=== PATIENT | male | born 1950 | race Caucasian/White ===

== ENCOUNTER → 2017-09-23 | Outpatient (CLI) | payer MEDICARE ==
[~2017-09-23] MED LIST: ASCO-182 PO; ASPI81TA94 PO; ATOR20TA22 PO; CHOL10005 PO; ESOM40CA42 PO; FISH OIL1 CAP PO; GLUC-241 PO; GLUC100026 PO; LOR5/325 PO; METF-410 PO; MULT-820 PO; OMEG1CAP35 PO; RABE20TA33 PO; ROS10 PO
--- NOTE | 2017-09-23 20:05 | RT STRESS TEST REPORT ---
FACILITY: [facility] [place] PATIENT NAME: HERNAN BRYANT : [id number] MR: [id number] V: [id number] EXAM DATE: ORDERING PHYSICIAN: KELLEE LÓPEZ TECHNOLOGIST: [employer] Time: 2017-09-23 08:16:14 Total Exercise Time: 00:07:00 Test Indications: Chest Pain / Discomfort Medications: metformin atorvastatin vitamins nexium Protocol: COMLY/BRUCE2 Max HR: 136 BPM 87% of Pred: 155 BPM Max BP: 190/092 mmHG Max Work Load: 7.6 METS see written report Confirmed by MO LÓPEZ ([id number]) on 09/23/2017 8:04:00 PM Referred By: Mo López Overread By: MO LÓPEZ
== END ==
LOC: RESP 08:11
PROVIDERS: ATTEND Internal Medicine
DX: R07.9 Chest pain, unspecified (principal); R06.02 Shortness of breath
CPT/HCPCS: 93017

== ENCOUNTER → 2017-10-16 | Outpatient (CLI) | payer MEDICARE ==
--- NOTE | 2017-10-16 17:41 | RT STRESS TEST REPORT ---
FACILITY: [facility] [place] PATIENT NAME: HERNAN BRYANT : [id number] MR: [id number] V: [id number] EXAM DATE: ORDERING PHYSICIAN: JIM SINGER TECHNOLOGIST: [employer] Time: 2017-10-16 14:18:10 Total Exercise Time: 00:06:58 Test Indications: Chest Discomfort Medications: see nuc med sheet Protocol: HARMONY 2 Max HR: 139 BPM 89% of Pred: 155 BPM Max BP: 209/093 mmHG Max Work Load: 8.4 METS Confirmed by SULLY ORR ([id number]) on 10/16/2017 5:41:04 PM Referred By: Jim Singer Overread By: SULLY ORR
--- NOTE | 2017-10-17 16:51 | RADIOLOGY IMAGING REPORT ---
FACILITY: [facility] PATIENT NAME: Aditya Renee : 1950 MR: [id number] V: [id number] EXAM DATE: ORDERING PHYSICIAN: MERLENE ABAD TECHNOLOGIST: Location: [facility] Patient: Aditya Renee : 1950 Visit/Account:[id number] Date of Sevice: 10/16/2017 EXAMINATION: Single Isotope SPECT Imaging with Exercise and Gated SPECT Imaging DATE OF EXAMINATION: 10/16/2017 DATE OF INTERPRETATION: 10/16/2017 REQUESTING PHYSICIAN: MERLENE ABAD INDICATION: The patient is a 67-year-old male evaluated for chest pain. PROCEDURE: After informed consent the patient received an intravenous injection of 13.5 mCi of Tc-9 9m sestamibi followed at the appropriate time interval by rest imaging. The patient then exercised a ccording to the standard James protocol for 6:58 minutes achieving 8.4 METS. Resting heart rate was 56 bpm with a peak heart rate of 139 bpm which is 89 % of maximal predicted heart rate for age. Blo od pressure at rest was 143 / 93; blood pressure during exercise was 209 / 98. There was no chest pa in during exercise. Exercise was discontinued because of fatigue. Baseline EKG demonstrates normal sinus rhythm, no ST or T-wave abnormalities. There were no EKG changes of ischemia at peak exercise. Approximately one minute and 30 seconds prior to the termination of exercise, the patient received an intravenous injection of 30.0 mCi of Tc-99m sestamibi followed by stress imaging. RAW DATA: Examination of the summed raw data revealed a good quality study. MYOCARDIAL PERFUSION: The tomographic images demonstrate mild inferior defect that corrects with pro ne imaging suggesting diaphragmatic attenuation. GATED IMAGES: The gated images demonstrate normal wall motion, ejection fraction 62% IMPRESSION: 1. Good quality study with diaphragmatic attenuation. 2. Normal myocardial perfusion scan. 3. Normal LV systolic function; LVEF 62%. 4. Based on the results of this exam, the patient appears to be at low risk for future cardiovascular events. Report Dictated By: Lucas Arevalo at 10/17/2017 4:42 PM Report E-Signed By: Lucas Arevalo at 10/17/2017 4:46 PM WSN:[id number]
== END ==
LOC: NUC 00:58
PROVIDERS: ATTEND Internal Medicine Cardiovascular Disease
DX: R07.2 Precordial pain (principal)
CPT/HCPCS: 78452; 93017; A9500

== ENCOUNTER 2018-11-26 00:21 | Day surgery (SDC) | payer MEDICARE ==
[~2018-11-26] VITALS: Ht 185.4 cm; Wt 101.6 kg
[~2018-11-26 00:21] MED LIST changes: +ATOR40TA69 PO; -METF-410 PO; +METF-450 PO
[2018-11-26] MEDS ORDERED: LIDOCAINE MPF 1% 5 ML VIAL ONE (08:18)
[2018-11-26] MEDS ORDERED: PROPOFOL EMUL(*) 10MG/ML 20 ML 40 ML ONE (08:18)
[2018-11-26 09:33] VITALS: BP 157/111
[2018-11-26] MEDS ORDERED: PROPOFOL EMUL(*) 10MG/ML 20 ML 20 ML ONE (11:25)
[2018-11-26] MEDS ORDERED: LIDOCAINE/SOD BICARB 8.4% SYR ID ONE (11:30)
[2018-11-26] MEDS ORDERED: NORMOSOL R SOLN(*) 1000 ML BAG 1,000 ML IV PRN (11:30)
[2018-11-26 11:53] VITALS: BP 125/78
[2018-11-26 12:10] VITALS: BP 121/84
[2018-11-26 12:32] VITALS: BP 140/89
[2018-11-26 12:38] VITALS: BP 129/85
[2018-11-26 12:40] VITALS: BP 128/83
== END 2018-11-26 12:52 | disposition home or self-care (01) ==
LOC: OR 00:21
PROVIDERS: ATTEND Family Medicine
DX: Z12.11 Encounter for screening for malignant neoplasm of colon (principal); K63.5 Polyp of colon; Z86.010 Personal history of colon polyps
CPT/HCPCS: 00811; 45385; 88305; J2001; J2704

== ENCOUNTER → 2019-02-08 | Outpatient (CLI) | payer MEDICARE ==
[~2019-02-08] MED LIST changes: +TAMS0.4C25 PO
== END ==
LOC: LAB 09:02
PROVIDERS: ATTEND Urology
DX: R97.20 Elevated prostate specific antigen [PSA] (principal)
CPT/HCPCS: 36415; 84154

== ENCOUNTER → 2019-02-11 | Day surgery (SDC) | payer MEDICARE ==
[2019-02-08 09:34] LABS: PLATELET COUNT, AUTOMATED 157 K/uL (150-450)
--- NOTE | 2019-02-10 19:58 | HISTORY AND PHYSICAL ---
DATE OF ADMISSION: February 11, 2019 CHIEF COMPLAINT Elevated PSA. HISTORY OF PRESENT ILLNESS Patient is a 68-year-old white male with an elevated PSA. His history began back in 2013 when he was first evaluated. At that time, his PSA was 6.2, and repeat was 5.0. He subsequently underwent a transrectal ultrasound biopsy in the office in March 2014, which revealed a 61 cc volume prostate. No cancer was identified on any of the 12 core biopsies. In followup, his PSA ranged from 8.2 to 10.6 over the course of the next few years. However, he was lost to followup after the fall and represented after referral by Dr. Cox for continued elevated PSA. He had a PSA in August 2018 which was 7.6. This was repeated in November, and it was 9.0 with 26% free. Given his relatively young age and excellent health status, a SelectMDx test was performed, which did return positive at 41% chance for prostate cancer. He is, therefore, being brought back to Radiology for prostatic ultrasound and biopsy. A repeat PSA the day before the procedure was at 9.4 with 17% free, which gives him approximately a 30% chance of having prostate cancer. PAST MEDICAL HISTORY 1. Hypercholesterolemia. 2. DVT 2016 after Achilles repair. 3. Gastroesophageal reflux disease. 4. BPH. 5. Low back pain. PAST SURGICAL HISTORY 1. Tonsillectomy. 2. Appendectomy. 3. Right Achilles repair. 4. Basal cell carcinoma removed off left eyebrow. 5. Left knee scope. CURRENT MEDICINES 1. Aspirin, which has been held. 2. Nexium. 3. Flomax. 4. Atorvastatin. 5. Multivitamins. ALLERGIES No known drug allergies. FAMILY HISTORY Noncontributory. REVIEW OF SYSTEMS Patient denies chest pain, shortness of breath, productive cough. However, he has had a dry cough for approximately a week, which is clearing and has been evaluated by Dr. Cox. He also denies headaches, bleeding disorder, liver disease, or dyspnea on exertion. PHYSICAL EXAMINATION GENERAL: Patient is a well-developed, well-nourished white male in no acute distress. HEENT: Normocephalic, atraumatic. CHEST: Clear to auscultation bilaterally. CARDIOVASCULAR: Regular rate and rhythm. ABDOMEN: Soft, nontender. No masses are palpated. GENITOURINARY: Deferred to the OR. EXTREMITIES: Without clubbing, cyanosis, or edema. NEUROLOGIC: Nonfocal. IMPRESSION A 68-year-old white male with persistently elevated PSA with equivocal PSA2s and an elevated SelectMDx result of 41% cancer. PLAN We will perform transrectal ultrasound-guided biopsies. [facility]
[~2019-02-11] VITALS: Ht 182.9 cm; Wt 99.8 kg
[~2019-02-11] MED LIST changes: +DEXAMETHASONE SOD 4 MG/ML VIAL ONE; +FAMOTIDINE 20 MG TAB PO ONE; +GENTAMICIN IVPB ONE; +LIDOCAINE MPF 1% 5 ML VIAL ONE; +LIDOCAINE/SOD BICARB 8.4% SYR ID ONE; +METOCLOPRAMIDE 10 MG/2 ML SDV ONE; +MIDAZOLAM 2 MG/2 ML VIAL IVP PRN; +NORMOSOL R SOLN(*) 1000 ML BAG 1,000 ML IV PRN; +NS 0.9% IVPB ONE; +ONDANSETRON 4 MG/2 ML VIAL ONE; +PROPOFOL EMUL(*) 10MG/ML 20 ML 20 ML ONE; +ceFAZolin(*) 2GM/D5W 50ML 50 ML IVPB ONE; +fentaNYL CITR 100 MCG/2 ML AMP ONE
[2019-02-11 07:30] VITALS: BP 152/92
[2019-02-11 11:00] VITALS: BP 117/72
[2019-02-11 11:16] VITALS: BP 112/79
[2019-02-11 11:19] VITALS: BP 117/86
--- NOTE | 2019-02-11 14:01 | RADIOLOGY IMAGING REPORT ---
FACILITY: [facility] [place] PATIENT NAME: Aditya Renee : 1950 MR: [id number] V: [id number] EXAM DATE: ORDERING PHYSICIAN: AKANKSHA POTTER TECHNOLOGIST: Location: [facility] [place] Patient: Aditya Renee : 1950 Visit/Account:[id number] Date of Sevice: 02/11/2019 Exam type: PROSTATE BIOPSY History: Elevated PSA Comparison: None. Findings: The prostate biopsy was performed by Dr. Potter. Sonographic assistance was provided. Please see Dr Diane Potter's note for complete details IMPRESSION: 1. As above Report Dictated By: Ladonna Young MD at 02/11/2019 1:55 PM Report E-Signed By: Ladonna Young MD at 02/11/2019 1:56 PM WSN:[id number]
--- NOTE | 2019-02-12 07:57 | OPERATIVE REPORT 1 ---
EVENT DATE: February 11, 2019 SURGEON: Keven Sal MD ANESTHESIOLOGIST: Aditya Mccormick MD ANESTHESIA: General. PREOPERATIVE DIAGNOSIS Elevated prostate specific antigen. POSTOPERATIVE DIAGNOSIS Elevated prostate specific antigen. PROCEDURES PERFORMED 1. Transrectal ultrasound of prostate with ultrasound guidance of needle placement for biopsies. 2. Prostate needle biopsy x24. ESTIMATED BLOOD LOSS 5 cc. IV FLUIDS Crystalloids. DRAINS None. COMPLICATIONS None. PATHOLOGY 24 cores in 12 containers sent as right and left base, mid, apex and medial lateral. FINDINGS 100 cc volume prostate. CONDITION The patient was taken to recovery room awake and in stable condition. STATEMENT OF MEDICAL NECESSITY The patient is a 68-year old white male with a history of elevated PSA, status post a negative biopsy approximately five years ago. Now found to have continued elevated PSA up in the 10 range. A Select MDX test was performed, which returned positive for a percentage of prostate cancer at 41%. A followup PSA more recently with PSA 2 was a 9.4 with a 17% free, which would give them approximately 34% risk of prostate cancer. Given these findings and patient is otherwise relatively young and healthy, he is elected to undergo transrectal ultrasound biopsy in the operating room for further evaluation. DESCRIPTION OF OPERATION PERFORMED The patient was brought to the operating room and after general anesthetic was obtained, he was placed in the dorsal lithotomy position. Digital rectal exam was performed, which revealed a normal sphincter tone, empty vault and approximately 60 cc volume prostate. There were no nodularities or other abnormal findings on exam. At this point, the end-fire probe was introduced into patients atraumatically and I performed a transrectal ultrasound of the prostate. Finish Sander pictures were taken at the seminal vesicle base, mid, apex and medial and lateral areas. He was noted to have some calcifications along the transition zone at peripheral zone junction. Otherwise, normal exam except for increasing volume. His prostatic volume was calculated at 100 cc. At this point, the biopsy guide was placed on the screen to use the ultrasound for guidance of needle placement during the biopsies. The biopsy gun was then used to perform a total of 24 prostate needle biopsies starting on the right side and doing two at the right base lateral and two at the right base medial, proceeding on with the right mid and apex lateral and medial areas. Following this, 12 more cores were done on the opposite side and measured left base medial and lateral, apex mid and base. Therefore, a total of 24 cores were obtained and sent in the 12 separate containers for analysis. At the conclusion of the procedure, the ultrasound probe was removed. He was taken down from dorsal lithotomy position, awakened in the operating room and taken to the recovery area in stable condition. After he is recovered from anesthesia, he will be deemed ready for discharge. We will see him in the office in approximately one week to review his pathology. VALERIE
== END ==
LOC: OR 00:40
PROVIDERS: ATTEND Urology
DX: R97.20 Elevated prostate specific antigen [PSA] (principal); E78.00 Pure hypercholesterolemia, unspecified; K21.9 Gastro-esophageal reflux disease without esophagitis; Z86.718 Personal history of other venous thrombosis and embolism; Z79.82 Long term (current) use of aspirin
CPT/HCPCS: 36415; 55700; 76942; 81001; 84153; 84154; 85025; 87088; 88305; 88344; A9270; J1100; J1580; J2001; J2405; J2704; J2765; J3010; J7050; J0690